=== PATIENT | female | born 1970 | race Caucasian/White ===

== ENCOUNTER → 2020-05-06 00:01 | Outpatient (BNVA) | payer OTHER, SELFPAY | PROVIDERS: Family Provider Family Medicine; PCP Family Medicine; Visit Provider Nurse Practitioner Family | DX: R05 Cough (principal) | CPT/HCPCS: 87635 ==

== ENCOUNTER → 2021-01-17 10:56 | Outpatient (BNVA) | payer OTHER, SELFPAY | PROVIDERS: Family Provider Family Medicine; PCP Family Medicine; Visit Provider Internal Medicine | DX: E11.65 Type 2 diabetes mellitus with hyperglycemia (principal); E66.9 Obesity, unspecified; Z86.39 Personal history of other endocrine, nutritional and metabolic disease | CPT/HCPCS: 99204 ==

== ENCOUNTER → 2021-01-27 14:59 | Outpatient (BNVA) | payer OTHER, SELFPAY | PROVIDERS: Family Provider Family Medicine; PCP Family Medicine; Referring Provider Dermatology; Visit Provider Podiatrist Foot & Ankle Surgery | DX: M20.11 Hallux valgus (acquired), right foot (principal); M77.31 Calcaneal spur, right foot | CPT/HCPCS: 73630 ==

== ENCOUNTER 2021-09-21 18:43 | Emergency (ER) | payer OTHER, SELFPAY ==
[2021-09-21 19:07] VITALS: BP 142/74; PULSE 67; RESP 18; TEMP 36.7; O2SAT 98; BMI 35.9
[2021-09-21 19:27] VITALS: BP 142/74; PULSE 67; RESP 18; O2SAT 98
--- NOTE | 2021-09-21 19:31 | XRR_ITS ---
PROCEDURE INFORMATION: Exam: XR Right Wrist Exam date and time: 09/21/2021 7:31 PM Age: 51 years old Clinical indication: Injury or trauma; Fall; Blunt trauma (contusions or hematomas); Wrist; Right TECHNIQUE: Imaging protocol: XR Right wrist. Views: 3 or more views. COMPARISON: No relevant prior studies available. FINDINGS: Bones/joints: Mild 1st carpometacarpal joint osteoarthritis. Soft tissues: Normal. XR/XR wrist RT min 3V* [id number] IMPRESSION: 1. No acute findings. 2. Mild 1st carpometacarpal joint osteoarthritis. Radiation Dose CTDIVOL = (mGy): DLP = (mGy-cm)
--- NOTE | 2021-09-21 19:31 | W.ED.EXTPRO ---
HPI - Extremity Problem General: Chief complaint: Extremity Injury, Upper Stated complaint: RT Hand Injury Time Seen by Provider: 09/21/21 19:21 History of Present Illness: HPI Narrative: 51-year-old female comes in with injury to the right wrist area. Patient reports that yesterday she was walking her dog when it jerked away from her causing her to fall and injure her right wrist area. Patient reports pain along the thumb and radius of the wrist. Patient appears well. No obvious deformity is noted. Review of Systems General: Reports: 10 or more systems reviewed and unremarkable except in HPI and below Musc: Reports: other (Right wrist) FORMERLY [facility], [facility] ED PFSH: Medical History History of diabetes mellitus, type II Surgical History History of hysterectomy History of knee replacement Family History Grandmother , LUNG No problems noted. 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 Current gender identity: Female Special [place] needs: No Physical Exam Const: COMMON NORMALS: no acute distress and patient oriented x3 GENERAL APPEARANCE: cooperative HENMT: COMMON NORMALS: normocephalic HEAD & SCALP: normal to inspection and normocephalic Eye: GENERAL EYE: appearance normal, both eyes and all related structures Neck/C-Spine: COMMON NORMALS: full ROM Chest: COMMONS NORMALS: normal inspection of the chest Resp: COMMON NORMALS: normal respiratory effort EFFORT & INSPECTION: Yes able to speak in complete sentences Cardio: COMMON NORMALS: regular rate and regular rhythm RATE: regular rate RHYTHM: regular rhythm GI: COMMON NORMALS: non-tender Back/Pelvis: COMMON NORMALS: thoracic and lumbar spine normal to inspection Extremity: NARRATIVE EXTREMITY EXAM: Mild swelling is noted to the radial side of the right wrist, negative snuffbox, patient has good range of motion of the hand and wrist. Tenderness is noted along the thenar aspect of the thumb. Neuro: COMMON NORMALS: patient oriented x3 and moves all extremities Psych: COMMON NORMALS: mental status grossly normal and cooperative Skin: COMMON NORMALS: no rashes or lesions noted GENERAL SKIN EXAM: no rashes or lesions noted Course Vital Signs: Vital signs: Vital Signs Temperature 98.1 F 09/21/21 19:07 Pulse Rate 67 09/21/21 19:27 Respiratory Rate 18 09/21/21 19:27 Blood Pressure 142/74 09/21/21 19:27 Pulse Oximetry 98 09/21/21 19:27 MDM - Extremity (Nontraumatic) MDM Narrative: Medical decision making narrative: Patient comes in today with injury to the right wrist. On exam he she has some mild swelling to the radial aspect of the wrist and some tenderness to the thenar area of the hand. Differential diagnosis includes scaphoid fracture, radial fracture, sprain. X-rays seen to have no fracture noted on it. Patient was placed in elastic bandage and recommended to follow-up in 5 to 7 days for continued complaints of pain for repeat x-ray. Patient reported understanding and agreed to plan. Discharge Plan Discharge Patient Disposition: Home Clinical Impression: Sprain of wrist, right Condition: Stable Prescriptions: No Action lisinopril 5 mg tablet 5 mg PO DAILY RF: 0 citalopram 10 mg tablet 10 mg PO DAILY RF: 0 cholecalciferol (vitamin D3) 10 mcg (400 unit) capsule 10 mcg PO DAILY RF: 0 estradiol 0.5 mg tablet 0.5 mg PO DAILY RF: 0 metformin 1,000 mg tablet extended release 24hr 1,000 mg PO BID Qty: 180 RF: 3 Jardiance 25 mg tablet 25 mg PO DAILY RF: 0 Discharge Orders: Discharge ED (Routine); Ordered 09/21/21 Ordered By: Immanuel Yoder Referrals: Prabhu Alfaro MD [Primary Care Provider] - Discharge Diet: Usual diet Discharge Activity: Increase activity as tolerated Patient Instructions: Wrist Sprain (ED), Opioid Safety Activity Restrictions/Additional Instructions: Activity as tolerated. Use wrist support for comfort. Increase activity as tolerated. Use ice to the area for the next 48 hours to help with pain and swelling. After that you may use heat or ice as needed for any discomfort. Use acetaminophen and ibuprofen for pain. Follow-up with primary care for further instruction. Return to the ER for new concerns. 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
== END 2021-09-21 19:57 | disposition home or self-care (01) ==
PROVIDERS: Emergency Provider Nurse Practitioner Family; PCP Family Medicine
DX: S63.501A Unspecified sprain of right wrist, initial encounter (principal); Z79.84 Long term (current) use of oral hypoglycemic drugs; E11.9 Type 2 diabetes mellitus without complications; W19.XXXA Unspecified fall, initial encounter
CPT/HCPCS: 73110; 99282

== ENCOUNTER → 2022-02-26 10:46 | Outpatient (BNVA) | payer OTHER, SELFPAY | PROVIDERS: PCP Family Medicine; Visit Provider Family Medicine | DX: E11.9 Type 2 diabetes mellitus without complications (principal); E78.5 Hyperlipidemia, unspecified | CPT/HCPCS: 80053; 80061; 83036; 85025 ==

== ENCOUNTER 2022-04-21 12:15 | Outpatient (CLI) | payer OTHER, SELFPAY | END 2022-04-21 12:16 | disposition home or self-care (01) | LOC: SPT 12:17 | PROVIDERS: PCP Family Medicine; Visit Provider Podiatrist Foot & Ankle Surgery | DX: Z46.89 Encounter for fitting and adjustment of other specified devices (principal); M21.612 Bunion of left foot; M21.611 Bunion of right foot | CPT/HCPCS: L3030 ==

== ENCOUNTER 2023-02-16 07:44 | Outpatient (CLI) | payer OTHER, SELFPAY ==
[2023-02-16 08:20] LABS: Estmated Average Glucose 194; Hemoglobin A1C 8.4 % (4.0-6.0)
[2023-02-16 08:37] LABS: Alanine Aminotransferase 21 U/L (0-33); Albumin Level 4.4 g/dL (3.5-5.2); Alkaline Phosphatase 86 U/L (35-105); Anion Gap 14.8 (5-19); Aspartate Amino Transferase 18 U/L (0-32); Blood Urea Nitrogen 15 mg/dL (6-20); Calcium 9.3 mg/dL (8.5-10.5); Carbon Dioxide 26 mmol/L (22-29); Chloride 99 mmol/L (98-107); Chol HDL Ratio 2.74 mg/dL (0.0-4.40); Cholesterol 156 mg/dL (0-200); Glomerular Filtration Rate 104.6 mL/min (90-130); Glucose 144 mg/dL (65-115); HDL Cholesterol 57 mg/dL (60-100); LDL Cholesterol Calculated 74 mg/dL (50-129); Osmolality Calculated 285 mOsm/kg (285-295); Potassium 3.8 mmol/L (3.5-5.1); Sodium 136 mmol/L (136-145); Total Bilirubin 0.7 mg/dL (0.15-1.2); Total Protein 7.4 g/dL (6.6-8.7); Triglycerides 123 mg/dL (0-150)
[2023-02-16 08:38] LABS: Creatinine Urine, Random 76 mg/dL (28-217); Microalbum Creatinine Ratio Ur 13 mg/dL (0-20); Microalbumin Random Urine 1 ug/dL (0-20)
== END 2023-02-16 07:45 | disposition home or self-care (01) ==
LOC: LAB 07:47
PROVIDERS: PCP Family Medicine; Visit Provider Internal Medicine
DX: E11.65 Type 2 diabetes mellitus with hyperglycemia (principal); E78.2 Mixed hyperlipidemia
CPT/HCPCS: 36415; 80053; 80061; 82044; 83036

== ENCOUNTER 2023-04-22 12:57 | Emergency (ER) | payer OTHER, SELFPAY ==
[2023-04-22] VITALS (10 sets, daily range): BP systolic 99–125; BP diastolic 65–83; PULSE 76–83; RESP 15–18; TEMP 36.4; O2SAT 95–99; BMI 35.2
--- NOTE | 2023-04-22 13:21 | ECG_ITS ---
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 Measurements Intervals [place] Rate: 86 P: 63 LA: 155 QRS: 55 QRSD: 89 T: 67 QT: 369 QTc: 442 Interpretive Statements SINUS RHYTHM No previous ECG available for comparison Electronically Signed On 04-22-2023 19:26:46 CDT by Alyx Gamino M.D. [id number]
--- NOTE | 2023-04-22 13:33 | XR_ITS ---
WS: [id number] Exam: XR chest 1V portable [id number] Date/Time of Exam: 04/22/2023 1:39 PM Reason For Exam: chest pain No priors. Findings: The lungs are clear and fully expanded. Costophrenic angles are sharp. No infiltrates. Bronchovascula r relief appears normal. Cardiac silhouette is unremarkable. Bony elements are intact. XR/XR chest 1V portable [id number] IMPRESSION: Unremarkable chest radiograph.
--- NOTE | 2023-04-22 13:58 | ED_ITS ---
HPI - Chest Pain General: Chief Complaint: Chest Pain Stated Complaint: n/v, chest/back pain Time Seen by Provider: 04/22/23 13:35 History of Present Illness: Presents to the ER with chief complaint of substernal chest pain/indigestion. She states has been having this for few days but also having pain between her shoulder blades all this is resolved now except some indigestion. Patient has started taking Mounjaro axis may be part of the issue. Patient had some nausea vomiting last night and this morning. Patient has not had anything to eat today. Review of Systems General: Reports: 10 or more systems reviewed and unremarkable except in HPI and below PFSH ED PFSH: Medical History History of diabetes mellitus, type II Surgical History History of hysterectomy History of knee replacement Family History Grandmother , LUNG No problems noted. 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 [employer] Current gender identity: Female Special [place] needs: No Physical Exam Const: COMMON NORMALS: no acute distress, average body habitus, patient oriented x3, no limitations, healthy appearing, alert and well nourished HENMT: COMMON NORMALS: normocephalic, atraumatic, hearing grossly normal bilaterally, external ears normal, Normal external nose present and moist oral mucous membranes HEAD & SCALP: normocephalic and atraumatic NOSE: Normal external nose present EXTERNAL EAR: Yes external ears normal Neck/C-Spine: COMMON NORMALS: full ROM, no lymphadenopathy, supple, no meningeal signs, no JVD and Thyroid normal THYROID: Thyroid normal Chest: COMMONS NORMALS: normal inspection of the chest and normal palpation of entire chest wall Resp: COMMON NORMALS: normal respiratory effort, No retractions, No use of accessory muscles and clear to auscultation bilaterally AUSCULTATION: clear to auscultation bilaterally Cardio: COMMON NORMALS: no JVD GI: COMMON NORMALS: Normal to inspection, nondistended, normoactive bowel sounds present, Soft to palpation, non-tender, No hepatosplenomegaly present and no masses PALPATION: Yes Soft to palpation and Yes No hepatosplenomegaly present : COMMON NORMALS: Yes no CVA tenderness BLADDER/KIDNEY EXAM: Yes no CVA tenderness Back/Pelvis: COMMON NORMALS: no CVA tenderness Neuro: COMMON NORMALS: patient oriented x3 SENSORIUM/ORIENTATION: Yes alert MENINGEAL SIGNS: Yes no meningeal signs Course Vital Signs: Vital signs: Vital Signs Temperature 97.6 F 04/22/23 13:10 Pulse Rate 83 04/22/23 13:10 Respiratory Rate 18 04/22/23 13:18 Blood Pressure 99/65 04/22/23 15:00 Pulse Oximetry 96 04/22/23 13:10 Oxygen Delivery Me thod Room Air 04/22/23 13:10 MDM - Chest Pain Medical Decision Making Presents to the ER with substernal epigastric pain. Along with nausea and vomiting. Lab work was obtained which showed a normal white count did show elevated liver enzymes the AST 159 and ALT 178 with alkaline phosphatase of 221. CT was obtained which was benign for liver, however did show some small bowel and colon, gastroenteritis. Patient was given IV fluids, GI cocktail, and Zofran here in ER and she is feeling a little better. Patient be discharged home to push fluids and take Zofran as needed. Follow-up with your doctor within next week. Differential Diagnosis Unlikely acute massive pulmonary embolism, acute respiratory failure, acute myocardial infarction, cardiac arrest or sudden cardiac Medical Records I reviewed the patient's medical records. Lab Data I reviewed the patient's lab results. 04/22/23 13:47 04/22/23 13:47 Radiology Impressions Chest X-Ray 04/22/23 13:33 IMPRESSION: Unremarkable chest radiograph. Abdomen/Pelvis CT 04/22/23 14:53 IMPRESSION: 1. Prominent fluid in the small bowel and colon may reflect a gastroenteritis in the appropriate clinical setting. 2. Left deep pelvis 4.5 cm simple cyst with a small amount of surrounding fluid, nonemergent pelvic ultrasound could further evaluate this. 3. Edema in the upper abdominal mesentery with subcentimeter lymph nodes suggestive of a possible chronic inflammatory process such as sclerosing mesenteritis. 4. Hepatic steatosis. 5. Cholecystectomy. Laboratory Results WBC 9.2 10^3/uL (4.0-10.0) 04/22/23 13:47 RBC 5.65 10^6/uL (4.1-5.3) H 04/22/23 13:47 Hgb 16.1 g/dL (11.5-15.3) H 04/22/23 13:47 Hct 48.6 % (37.0-47.0) H 04/22/23 13:47 MCV 86.0 fl (81-99) 04/22/23 13:47 MCH 28.5 pg (28.0-34.0) 04/22/23 13:47 MCHC 33.1 g/dL (30.0-36.0) 04/22/23 13:47 RDW 13.0 % (12.1-15.1) 04/22/23 13:47 Plt Count 208 10^3/cmm (130-400) 04/22/23 13:47 MPV 12.0 fL (7.4-10.4) H 04/22/23 13:47 Neut % (Auto) 79.5 % 04/22/23 13:47 Lymph % (Auto) 12.1 % 04/22/23 13:47 [place] % (Auto) 4.2 % 04/22/23 13:47 Eos % (Auto) 3.9 % 04/22/23 13:47 Baso % (Auto) 0.1 % 04/22/23 13:47 Neut # (Auto) 7.34 10^3/uL (1.8-7.7) 04/22/23 13:47 Lymph # (Auto) 1.1 10^3/uL (0.8-4.8) 04/22/23 13:47 [place] # (Auto) 0.4 10^3/uL (0.2-0.9) 04/22/23 13:47 Eos # (Auto) 0.4 10^3/uL (0.0-0.8) 04/22/23 13:47 Baso # (Auto) 0.0 10^3/uL (0.0-0.1) 04/22/23 13:47 Nucleated RBC % (auto) 0 % 04/22/23 13:47 Nucleated RBCs # 0.0 /100WBC 04/22/23 13:47 Sodium 140 mmol/L (136-145) 04/22/23 13:47 Potassium 3.9 mmol/L (3.5-5.1) 04/22/23 13:47 Chloride 103 mmol/L (98-107) 04/22/23 13:47 Carbon Dioxide 24 mmol/L (22-29) 04/22/23 13:47 Anion Gap 16.9 (5-19) 04/22/23 13:47 BUN 19 mg/dL (6-20) 04/22/23 13:47 Creatinine 0.6 mg/dL (0.5-0.9) 04/22/23 13:47 GFR Calculation 104.6 mL/min (90-130) 04/22/23 13:47 Glucose 122 mg/dL (65-115) H 04/22/23 13:47 Calculated Osmolality 294 mOsm/kg (285-295) 04/22/23 13:47 Calcium 9.1 mg/dL (8.5-10.5) 04/22/23 13:47 Total Bilirubin 0.8 mg/dL (0.15-1.2) 04/22/23 13:47 AST 159 U/L (0-32) H 04/22/23 13:47 ALT 178 U/L (0-33) H 04/22/23 13:47 Alkaline Phosphatase 221 U/L (35-105) H 04/22/23 13:47 Troponin T Baseline 6 ng/L (0-10) 04/22/23 13:47 Troponin T 120 Minute 6.00 ng/L (0-10) 04/22/23 15:24 Delta Troponin T 0 ABS# (0-10) 04/22/23 15:24 Total Protein 6.6 g/dL (6.6-8.7) 04/22/23 13:47 Albumin 4.1 g/dL (3.5-5.2) 04/22/23 13:47 Globulin 2.5 g/dL (1.3-4.6) 04/22/23 13:47 Lipase 26 U/L (13-60) 04/22/23 13:47 Urine Color Yellow (Yellow) 04/22/23 15:04 Urine Appearance Clear (CLEAR) 04/22/23 15:04 Urine pH 6 (5-7) 04/22/23 15:04 Ur Specific [place] 1.010 (1.005-1.030) 04/22/23 15:04 Urine Protein Neg (Negative) 04/22/23 15:04 Urine Glucose (UA) 4+ (Normal) H 04/22/23 15:04 Urine Ketones 2+ (Negative) H 04/22/23 15:04 Urine Blood Neg (Negative) 04/22/23 15:04 Urine Nitrate Negative (Negative) 04/22/23 15:04 Urine Bilirubin 1+ (Negative) H 04/22/23 15:04 Urine Urobilinogen 4 mg/dL (Negative) H 04/22/23 15:04 Ur Leukocyte Esterase Negative (Negative) 04/22/23 15:04 EKG Data EKG 1: I personally reviewed and interpreted this EKG as follows: EKG interpretation date: 04/22/23 EKG interpretation time: 13:21 Prior EKG tracings: not available for review Interpretation: EKG showed ventricular rate of 86 bpm, HI interval 155, QRS duration 89, QTc of 442, normal sinus rhythm and no ST-T wave changes. EKG 2: I personally reviewed and interpreted this EKG as follows: EKG interpretation date: 04/22/23 EKG interpretation time: 16:07 Prior EKG tracings: available for review Interpretation: EKG showed ventricular rate 64 beats minute, HI interval 167, QRS duration 84, QTc of 426, normal sinus rhythm with ventricular premature complex, no ST-T wave changes Discharge Plan Discharge Patient Disposition: Home Clinical Impression: Gastroenteritis, Abdominal pain, epigastric Condition: Stable Prescriptions: New ondansetron HCl 4 mg tablet 4 mg PO Q8H PRN (Reason: nausea and vomiting) Qty: 14 0RF No Action cholecalciferol (vitamin D3) 10 mcg (400 unit) capsule 10 mcg PO DAILY (DME) sole supports See Rx Instructions .Route .MEDSUPPLY Qty: 1 0RF Rx Instructions: As directed metformin 1,000 mg tablet extended release 24hr 1,000 mg PO BID Qty: 180 3RF lisinopril 5 mg tablet 5 mg PO DAILY Qty: 90 3RF Mounjaro 2.5 mg/0.5 mL pen injector 2.5 mg SUBCUT Q7D 30 Days Qty: 15 0RF Rx Instructions: 2.5mg weekly for 1month; 5mg weekly for 1month; 7.5mg weekly and continue Mounjaro 5 mg/0.5 mL pen injector 5 mg SUBCUT Q7D 30 Days Qty: 15 0RF Rx Instructions: 5mg weekly for 1 month then 7.5mg weekly and continue Mounjaro 7.5 mg/0.5 mL pen injector 7.5 mg SUBCUT Q7D 30 Days Qty: 15 0RF (DME) OneTouch Ultra Test Strip See Rx Instructions .Route Qty: 200 2RF Rx Instructions: Check up to 2 times daily ibuprofen 800 mg tablet 800 mg PO TID PRN (Reason: pain) Qty: 90 5RF estradiol 0.5 mg tablet 0.5 mg PO DAILY Qty: 90 3RF Rx Instructions: off 5 days; repeat cycle omeprazole 20 mg Capsule,Delayed Release(Dr/Ec) 20 mg PO BID vitamin Y24-rdhzh acid 0.5-1 mg Tablet 1 tab PO DAILY whgrmbp-pxom-eycat-oreg-capryl 100 mg-150 mg- 50 mg-150 mg Capsule 1 cap PO DAILY citalopram 40 mg tablet 40 mg PO DAILY atorvastatin 10 mg tablet 10 mg PO DAILY oxybutynin chloride 5 mg tablet 5 mg PO DAILY Jardiance 25 mg tablet 25 mg PO DAILY Discharge Orders: Discharge ED (Routine); Ordered 04/22/23 Ordered By: Luca Torres Referrals: Prabhu Alfaro MD [Primary Care Provider] - 1 week Patient Instructions: Gastroenteritis (ED), Abdominal Pain (ED) Activity Restrictions/Additional Instructions: Please push fluids and advance diet as tolerated. Please take antiemetics as directed. Please follow-up with the PCP in approximately 1 week or sooner as needed. Coding Level of Care Code ED Operating Theatre Technician for Eliseo Mancini
[2023-04-22 14:04] LABS: Basophils % 0.1 %; Eosinophils # 0.4 10^3/uL (0.0-0.8); Eosinophils % 3.9 %; Hematocrit 48.6 % (37.0-47.0); Hemoglobin 16.1 g/dL (11.5-15.3); Lymphocytes # 1.1 10^3/uL (0.8-4.8); Lymphocytes % 12.1 %; Mean Corpuscular HGB Conc 33.1 g/dL (30.0-36.0); Mean Corpuscular Hemoglobin 28.5 pg (28.0-34.0); Monocytes # 0.4 10^3/uL (0.2-0.9); Monocytes % 4.2 %; Neutrophils # 7.34 10^3/uL (1.8-7.7); Neutrophils % 79.5 %; Nucleated Red Blood Cells % 0 %; Platelet Count 208 10^3/cmm (130-400); Red Blood Count 5.65 10^6/uL (4.1-5.3); White Blood Count 9.2 10^3/uL (4.0-10.0)
[2023-04-22 14:22] LABS: Alanine Aminotransferase 178 U/L (0-33); Albumin Level 4.1 g/dL (3.5-5.2); Alkaline Phosphatase 221 U/L (35-105); Anion Gap 16.9 (5-19); Aspartate Amino Transferase 159 U/L (0-32); Blood Urea Nitrogen 19 mg/dL (6-20); Calcium 9.1 mg/dL (8.5-10.5); Carbon Dioxide 24 mmol/L (22-29); Chloride 103 mmol/L (98-107); Globulin 2.5 g/dL (1.3-4.6); Glomerular Filtration Rate 104.6 mL/min (90-130); Glucose 122 mg/dL (65-115); Lipase 26 U/L (13-60); Osmolality Calculated 294 mOsm/kg (285-295); Potassium 3.9 mmol/L (3.5-5.1); Sodium 140 mmol/L (136-145); Total Bilirubin 0.8 mg/dL (0.15-1.2); Total Protein 6.6 g/dL (6.6-8.7)
[2023-04-22 14:25] LABS: Troponin(5th) Baseline 6 ng/L (0-10)
[2023-04-22] MEDS: lidocaine 2% viscous 15 ML, aluminum-mag hydrox-simethicon 30 ML, sucralfate oral liq 1 GM PO (14:25)
--- NOTE | 2023-04-22 14:53 | CTR_ITS ---
PROCEDURE INFORMATION: Exam: CT Abdomen And Pelvis With Contrast Exam date and time: 04/22/2023 3:55 PM Age: 52 years old Clinical indication: Abdominal pain; Epigastric; Prior surgery; Surgery date: 6+ months; Surgery type: Hyst; Additional info: N/v epigastric pain, elevated lfts TECHNIQUE: Imaging protocol: Computed tomography of the abdomen and pelvis with contrast. Radiation optimization: All CT scans at this facility use at least one of these dose optimization techniques: automated exposure control; mA and/or kV adjustment per patient size (includes targeted exams where dose is matched to clinical indication); or iterative reconstruction. Contrast material: OMNI 350; Contrast volume: 100 ml; Contrast route: INTRAVENOUS (IV); REPORTING DATA: Count of CT and Cardiac NM exams in prior 12 months: This patient has received 0 known CTs and 0 known cardiac nuclear medicine studies in the 12 months prior to the current study. COMPARISON: CR XR chest 1V portable [id number] 04/22/2023 1:41 PM RADIATION DOSE METRICS: Total DLP (mGy-cm): 1081.63 FINDINGS: Liver: Hepatic steatosis. Gallbladder and bile ducts: Cholecystectomy. Pancreas: Normal. No ductal dilation. Spleen: Normal. No splenomegaly. Adrenal glands: Normal. No mass. Kidneys and ureters: Normal. No hydronephrosis. Stomach and bowel: Prominent fluid in the small bowel and colon may reflect a gastroenteritis in the appropriate clinical setting. Appendix: No evidence of appendicitis. Intraperitoneal space: Unremarkable. No free air. No significant fluid collection. Vasculature: Unremarkable. No abdominal aortic aneurysm. Lymph nodes: Edema in the upper abdominal mesentery with subcentimeter lymph nodes suggestive of a possible chronic inflammatory process such as sclerosing mesenteritis. Urinary bladder: Unremarkable as visualized. Reproductive: Unremarkable as visualized. Bones/joints: Unremarkable. No acute fracture. Soft tissues: Unremarkable. Other findings: Left deep pelvis 4.5 cm simple cyst with a small amount of surrounding fluid, nonemergent pelvic ultrasound could further evaluate this. CT/CT abdomen pelvis w con* [id number] IMPRESSION: 1. Prominent fluid in the small bowel and colon may reflect a gastroenteritis in the appropriate clinical setting. 2. Left deep pelvis 4.5 cm simple cyst with a small amount of surrounding fluid, nonemergent pelvic ultrasound could further evaluate this. 3. Edema in the upper abdominal mesentery with subcentimeter lymph nodes suggestive of a possible chronic inflammatory process such as sclerosing mesenteritis. 4. Hepatic steatosis. 5. Cholecystectomy.
--- NOTE | 2023-04-22 15:34 | ECG_ITS ---
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 Measurements Intervals [place] Rate: 64 P: 47 NC: 167 QRS: 31 QRSD: 84 T: 49 QT: 417 QTc: 430 Interpretive Statements SINUS RHYTHM WITH OCCASIONAL VENTRICULAR PREMATURE COMPLEXES Compared to ECG 04/22/2023 13:21:37 Ventricular premature complex(es) now present Electronically Signed On 04-22-2023 19:27:44 CDT by Alyx Gamino M.D. [id number]
[2023-04-22 15:49] LABS: Add Urine Microscopic? NO; Charge for UA Resulting for Rev
[2023-04-22 15:55] LABS: Protein Urine Neg (Negative); Urine Appearance Clear (CLEAR); Urine Color Yellow (Yellow); pH Urine 6 (5-7)
[2023-04-22 15:56] LABS: Bilirubin Urine 1+ (Negative); Blood Urine Neg (Negative); Glucose Urine UA 4+ (Normal); Ketones Urine 2+ (Negative); Leukocyte Esterase Urine Negative (Negative); Nitrate Urine Negative (Negative); Urobilinogen Urine 4 mg/dL (Negative)
[2023-04-22 15:56] LABS: Troponin 5 2HR Delta 0 ABS# (0-10)
[2023-04-22] MEDS: iohexol 350 mg/mL 500 mL Btl (per mL) IV (16:01)
[2023-04-22] MEDS: ondansetron 2 mg/ML SDV 2 mL 4 MG IVP (17:40)
== END 2023-04-22 17:43 | disposition home or self-care (01) ==
PROVIDERS: Physician Assistant; Emergency Provider Emergency Medicine; PCP Family Medicine
DX: K52.9 Noninfective gastroenteritis and colitis, unspecified (principal); Z79.84 Long term (current) use of oral hypoglycemic drugs; E11.9 Type 2 diabetes mellitus without complications
CPT/HCPCS: 36415; 71045; 74177; 80053; 81003; 83690; 84484; 85025; 93005; 96374; 99285; J2405; Q9967

== ENCOUNTER 2023-06-09 16:48 | Emergency (ER) | payer OTHER, SELFPAY ==
[2023-06-09 16:53] VITALS: BMI 36.9
[2023-06-09 16:55] VITALS: BP 101/69; PULSE 80; RESP 16; TEMP 37.1; O2SAT 95
[2023-06-09 17:25] VITALS: BP 104/65; PULSE 75; O2SAT 95
[2023-06-09 17:30] VITALS: BP 134/79; PULSE 67; O2SAT 97
--- NOTE | 2023-06-09 17:47 | ED_ITS ---
Documented by User: Syed Rodriguez DO 06/11/23 16:08 HPI - Abdominal Pain General: Chief Complaint: Abdominal Pain Stated Complaint: Abd pain Time Seen by Provider: 06/09/23 17:02 Source: patient Mode of arrival: ambulatory History of Present Illness: 53-year-old female presents emergency room complaining of nausea vomiting and diarrhea along the right upper quadrant abdominal pain. Began overnight. She denies any medic easy melena hematemesis cough tenderness no hematuria no dysuria urgency or frequency. took over care pending labs and us. upon revealuation and reexamination. pt with with mausea and diarrhea. she was given zofran and reglan. stool sample obtained and sent to lab MD elicited complaint: abdominal pain Onset (ago): hour(s) Pain Consistency: constant Location: RUQ Severity: moderate Quality: cramping Radiation: back Exacerbating factors: nothing Relieving factors: nothing Associated Symptoms: Reports GI cramping, diarrhea and nausea; Denies anorexia, belching, bloating, change in bowel habits, change in stool character, chills, coffee ground emesis, constipation, dyspepsia, dysuria, excessive flatus, fever(s), heartburn, hematochezia, hematuria, hematemesis, fecal incontinence, loose stools, melena, poor appetite, syncope and vomiting Review of Systems Const: Denies: fever(s) or chills ENMT: Denies: throat pain, ear or mastoid pain, nasal discharge or nasal congestion Card: Denies: syncope Resp: Denies: dyspnea, productive cough or non-productive cough GI: Reports: nausea, diarrhea and GI cramping; Denies: vomiting, hematemesis, coffee ground emesis, heartburn, constipation, bloating, belching, excessive flatus, fecal incontinence, change in bowel habits, change in stool character, hematochezia or melena : Denies: dysuria or hematuria Skin/Breast: Denies: rash or pruritus PFSH ED PFSH: Medical History History of diabetes mellitus, type II Surgical History History of hysterectomy History of knee replacement Family History Grandmother , LUNG No problems noted. 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 Current gender identity: Female Special mdoesta needs: No Physical Exam Const: GENERAL APPEARANCE: cooperative and comfortable ORIENTATION/CONSCIO USNESS: Yes awake, Yes oriented to person, Yes oriented to place and Yes oriented to time HENMT: COMMON NORMALS: normocephalic, atraumatic and hearing grossly normal bilaterally HEAD & SCALP: normocephalic and atraumatic Resp: COMMON NORMALS: normal respiratory effort, No retractions, No use of accessory muscles and clear to auscultation bilaterally AUSCULTATION: clear to auscultation bilaterally Cardio: COMMON NORMALS: regular rate, regular rhythm and No murmurs present (Cardio) RATE: regular rate RHYTHM: regular rhythm GI: COMMON NORMALS: Normal to inspection, nondistended, normoactive bowel sounds present, Soft to palpation, No hepatosplenomegaly present, no masses and no bruits AUSCULTATION: Yes normoactive bowel sounds PALPATION: Yes Soft to palpation, Yes Tenderness to palpation present (GI) Details: RUQ and Yes No hepatosplenomegaly present Extremity: COMMON NORMALS: normal to inspection, capillary refill normal, no clubbing, cyanosis or edema, no calf tenderness and no pedal edema Neuro: SENSORIUM/ORIENTATION: Yes oriented to person, Yes oriented to place and Yes oriented to time Skin: COMMON NORMALS: no rashes or lesions noted GENERAL SKIN EXAM: no rashes or lesions noted Course Vital Signs: Vital signs: Vital Signs Temperature 98.8 F 06/09/23 16:55 Pulse Rate 70 06/09/23 21:34 Respiratory Rate 18 06/09/23 21:34 Blood Pressure 132/68 06/09/23 21:34 Pulse Oximetry 96 06/09/23 21:34 Oxygen Delivery Me thod Room Air 06/09/23 17:30 MDM - Abdominal Pain Medical Decision Making Patient previously has had a cholecystectomy ultrasound done to evaluate common bile duct given her biliary colic like symptoms. Labs and ultrasound reading pending. patient made comfortable in ER. i reviewed labs and US . Discussed jesus duque with patient and family Medical Records I reviewed the patient's medical records. Lab Data 06/09/23 16:38 06/09/23 16:38 Labs/Radiology: Radiology Impressions Gallbladder Ultrasound 06/09/23 17:50 IMPRESSION: Status post cholecystectomy. Mild central biliary ductal dilatation, likely postsurgical. Laboratory Results WBC 10.6 10^3/uL (4.0-10.0) H 06/09/23 16:38 RBC 5.39 10^6/uL (4.1-5.3) H 06/09/23 16:38 Hgb 15.3 g/dL (11.5-15.3) 06/09/23 16:38 Hct 47.5 % (37.0-47.0) H 06/09/23 16:38 MCV 88.1 fl (81-99) 06/09/23 16:38 MCH 28.4 pg (28.0-34.0) 06/09/23 16:38 MCHC 32.2 g/dL (30.0-36.0) 06/09/23 16:38 RDW 13.4 % (12.1-15.1) 06/09/23 16:38 Plt Count 255 10^3/cmm (130-400) 06/09/23 16:38 MPV 12.3 fL (7.4-10.4) H 06/09/23 16:38 Neut % (Auto) 64.7 % 06/09/23 16:38 Lymph % (Auto) 29.5 % 06/09/23 16:38 [place] % (Auto) 4.4 % 06/09/23 16:38 Eos % (Auto) 0.8 % 06/09/23 16:38 Baso % (Auto) 0.2 % 06/09/23 16:38 Neut # (Auto) 6.84 10^3/uL (1.8-7.7) 06/09/23 16:38 Lymph # (Auto) 3.1 10^3/uL (0.8-4.8) 06/09/23 16:38 Colleton # (Auto) 0.5 10^3/uL (0.2-0.9) 06/09/23 16:38 Eos # (Auto) 0.1 10^3/uL (0.0-0.8) 06/09/23 16:38 Baso # (Auto) 0.0 10^3/uL (0.0-0.1) 06/09/23 16:38 Nucleated RBC % (auto) 0 % 06/09/23 16:38 Nucleated RBCs # 0.0 /100WBC 06/09/23 16:38 Sodium 138 mmol/L (136-145) 06/09/23 16:38 Potassium 3.9 mmol/L (3.5-5.1) 06/09/23 16:38 Chloride 100 mmol/L (98-107) 06/09/23 16:38 Carbon Dioxide 25 mmol/L (22-29) 06/09/23 16:38 Anion Gap 16.9 (5-19) 06/09/23 16:38 BUN 17 mg/dL (6-20) 06/09/23 16:38 Creatinine 0.6 mg/dL (0.5-0.9) 06/09/23 16:38 GFR Calculation 104.2 mL/min (90-130) 06/09/23 16:38 Glucose 159 mg/dL (65-115) H 06/09/23 16:38 Calculated Osmolality 291 mOsm/kg (285-295) 06/09/23 16:38 Calcium 9.5 mg/dL (8.5-10.5) 06/09/23 16:38 Total Bilirubin 0.6 mg/dL (0.15-1.2) 06/09/23 16:38 AST 18 U/L (0-32) 06/09/23 16:38 ALT 19 U/L (0-33) 06/09/23 16:38 Alkaline Phosphatase 100 U/L (35-105) 06/09/23 16:38 Total Protein 7.5 g/dL (6.6-8.7) 06/09/23 16:38 Albumin 4.2 g/dL (3.5-5.2) 06/09/23 16:38 Globulin 3.3 g/dL (1.3-4.6) 06/09/23 16:38 Lipase 31 U/L (13-60) 06/09/23 16:38 Urine Color Yellow (Yellow) 06/09/23 19:40 Urine Appearance Clear (CLEAR) 06/09/23 19:40 Urine pH 5 (5-7) 06/09/23 19:40 Ur Specific Parachute 1.030 (1.005-1.030) 06/09/23 19:40 Urine Protein Neg (Negative) 06/09/23 19:40 Urine Glucose (UA) Norm (Normal) 06/09/23 19:40 Urine Ketones Negative (Negative) 06/09/23 19:40 Urine Blood Neg (Negative) 06/09/23 19:40 Urine Nitrate Negative (Negative) 06/09/23 19:40 Urine Bilirubin 1+ (Negative) H 06/09/23 19:40 Urine Urobilinogen Norm mg/dL (Negative) 06/09/23 19:40 Ur Leukocyte Esterase Negative (Negative) 06/09/23 19:40 Discharge Plan Discharge Patient Disposition: Home Clinical Impression: Abdominal pain, Nausea vomiting and diarrhea Condition: Stable Prescriptions: New Reglan 10 mg tablet 10 mg PO Q6H 7 Days Qty: 28 0RF No Action cholecalciferol (vitamin D3) 10 mcg (400 unit) capsule 10 mcg PO DAILY (DME) sole supports See Rx Instructions .Route .MEDSUPPLY Qty: 1 0RF Rx Instructions: As directed metformin 1,000 mg tablet extended release 24hr 1,000 mg PO BID Qty: 180 3RF lisinopril 5 mg tablet 5 mg PO DAILY Qty: 90 3RF Mounjaro 2.5 mg/0.5 mL pen injector 2.5 mg SUBCUT Q7D 30 Days Qty: 15 0RF Rx Instructions: 2.5mg weekly for 1month; 5mg weekly for 1month; 7.5mg weekly and continue Mounjaro 5 mg/0.5 mL pen injector 5 mg SUBCUT Q7D 30 Days Qty: 15 0RF Rx Instructions: 5mg weekly for 1 month then 7.5mg weekly and continue Mounjaro 7.5 mg/0.5 mL pen injector 7.5 mg SUBCUT Q7D 30 Days Qty: 15 0RF (DME) OneTouch Ultra Test Strip See Rx Instructions .Route Qty: 200 2RF Rx Instructions: Check up to 2 times daily ibuprofen 800 mg tablet 800 mg PO TID PRN (Reason: pain) Qty: 90 5RF estradiol 0.5 mg tablet 0.5 mg PO DAILY Qty: 90 3RF Rx Instructions: off 5 days; repeat cycle omeprazole 20 mg Capsule,Delayed Release(Dr/Ec) 20 mg PO BID vitamin R54-cknbu acid 0.5-1 mg Tablet 1 tab PO DAILY otjcbdg-ztzv-vpgsh-oreg-capryl 100 mg-150 mg- 50 mg-150 mg Capsule 1 cap PO DAILY citalopram 40 mg tablet 40 mg PO DAILY atorvastatin 10 mg tablet 10 mg PO DAILY oxybutynin chloride 5 mg tablet 5 mg PO DAILY Jardiance 25 mg tablet 25 mg PO DAILY ondansetron HCl 4 mg tablet 4 mg PO Q8H PRN (Reason: nausea and vomiting) Qty: 14 0RF Discharge Orders: Discharge ED (Routine); Ordered 06/09/23 Ordered By: Seble Lentz Referrals: Prabhu Alfaro MD [Primary Care Provider] - Discharge Diet: Advance as tolerated Discharge Activity: Resume usual activity Patient Instructions: Abdominal Pain (ED), Opioid Safety, Pain Management Coding Level of Care Code ED Supervisor Of Operations for Chg Fwd Documented by User: Seble Letnz MD 06/09/23 21:10 HPI - Abdominal Pain General: Chief Complaint: Abdominal Pain Stated Complaint: Abd pain Time Seen by Provider: 06/09/23 17:02 History of Present Illness: took over care pending labs and us. upon revealuation and reexamination. pt with with mausea and diarrhea. she was given zofran and reglan. stool sample obtained and sent to lab Associated Symptoms: Reports diarrhea and nausea Review of Systems General: Reports: 10 or more systems reviewed and unremarkable except in HPI and below GI: Reports: nausea and diarrhea PFSH ED PFSH: Medical History History of diabetes mellitus, type II Surgical History History of hysterectomy History of knee replacement Family History Grandmother , LUNG No problems noted. 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 Current gender identity: Female Special [place] needs: No Physical Exam GI: COMMON NORMALS: Normal to inspection, nondistended, normoactive bowel sounds present, Soft to palpation, non-tender, No hepatosplenomegaly present, no masses and no bruits PALPATION: Yes Soft to palpation and Yes No hepatosplenomegaly present Course Vital Signs: Vital signs: Vital Signs Temperature 98.8 F 06/09/23 16:55 Pulse Rate 70 06/09/23 21:34 Respiratory Rate 18 06/09/23 21:34 Blood Pressure 132/68 06/09/23 21:34 Pulse Oximetry 96 06/09/23 21:34 Oxygen Delivery Me thod Room Air 06/09/23 17:30 MDM - Abdominal Pain Medical Decision Making patient made comfortable in ER. i reviewed labs and US . Discussed land findings with patient and family Lab Data 06/09/23 16:38 06/09/23 16:38 Labs/Radiology: Radiology Impressions Gallbladder Ultrasound 06/09/23 17:50 IMPRESSION: Status post cholecystectomy. Mild central biliary ductal dilatation, likely postsurgical. Laboratory Results WBC 10.6 10^3/uL (4.0-10.0) H 06/09/23 16:38 RBC 5.39 10^6/uL (4.1-5.3) H 06/09/23 16:38 Hgb 15.3 g/dL (11.5-15.3) 06/09/23 16:38 Hct 47.5 % (37.0-47.0) H 06/09/23 16:38 MCV 88.1 fl (81-99) 06/09/23 16:38 MCH 28.4 pg (28.0-34.0) 06/09/23 16:38 MCHC 32.2 g/dL (30.0-36.0) 06/09/23 16:38 RDW 13.4 % (12.1-15.1) 06/09/23 16:38 Plt Count 255 10^3/cmm (130-400) 06/09/23 16:38 MPV 12.3 fL (7.4-10.4) H 06/09/23 16:38 Neut % (Auto) 64.7 % 06/09/23 16:38 Lymph % (Auto) 29.5 % 06/09/23 16:38 [place] % (Auto) 4.4 % 06/09/23 16:38 Eos % (Auto) 0.8 % 06/09/23 16:38 Baso % (Auto) 0.2 % 06/09/23 16:38 Neut # (Auto) 6.84 10^3/uL (1.8-7.7) 06/09/23 16:38 Lymph # (Auto) 3.1 10^3/uL (0.8-4.8) 06/09/23 16:38 [place] # (Auto) 0.5 10^3/uL (0.2-0.9) 06/09/23 16:38 Eos # (Auto) 0.1 10^3/uL (0.0-0.8) 06/09/23 16:38 Baso # (Auto) 0.0 10^3/uL (0.0-0.1) 06/09/23 16:38 Nucleated RBC % (auto) 0 % 06/09/23 16:38 Nucleated RBCs # 0.0 /100WBC 06/09/23 16:38 Sodium 138 mmol/L (136-145) 06/09/23 16:38 Potassium 3.9 mmol/L (3.5-5.1) 06/09/23 16:38 Chloride 100 mmol/L (98-107) 06/09/23 16:38 Carbon Dioxide 25 mmol/L (22-29) 06/09/23 16:38 Anion Gap 16.9 (5-19) 06/09/23 16:38 BUN 17 mg/dL (6-20) 06/09/23 16:38 Creatinine 0.6 mg/dL (0.5-0.9) 06/09/23 16:38 GFR Calculation 104.2 mL/min (90-130) 06/09/23 16:38 Glucose 159 mg/dL (65-115) H 06/09/23 16:38 Calculated Osmolality 291 mOsm/kg (285-295) 06/09/23 16:38 Calcium 9.5 mg/dL (8.5-10.5) 06/09/23 16:38 Total Bilirubin 0.6 mg/dL (0.15-1.2) 06/09/23 16:38 AST 18 U/L (0-32) 06/09/23 16:38 ALT 19 U/L (0-33) 06/09/23 16:38 Alkaline Phosphatase 100 U/L (35-105) 06/09/23 16:38 Total Protein 7.5 g/dL (6.6-8.7) 06/09/23 16:38 Albumin 4.2 g/dL (3.5-5.2) 06/09/23 16:38 Globulin 3.3 g/dL (1.3-4.6) 06/09/23 16:38 Lipase 31 U/L (13-60) 06/09/23 16:38 Urine Color Yellow (Yellow) 06/09/23 19:40 Urine Appearance Clear (CLEAR) 06/09/23 19:40 Urine pH 5 (5-7) 06/09/23 19:40 Ur Specific Parachute 1.030 (1.005-1.030) 06/09/23 19:40 Urine Protein Neg (Negative) 06/09/23 19:40 Urine Glucose (UA) Norm (Normal) 06/09/23 19:40 Urine Ketones Negative (Negative) 06/09/23 19:40 Urine Blood Neg (Negative) 06/09/23 19:40 Urine Nitrate Negative (Negative) 06/09/23 19:40 Urine Bilirubin 1+ (Negative) H 06/09/23 19:40 Urine Urobilinogen Norm mg/dL (Negative) 06/09/23 19:40 Ur Leukocyte Esterase Negative (Negative) 06/09/23 19:40 Discharge Plan Discharge Patient Disposition: Home Clinical Impression: Abdominal pain, Nausea vomiting and diarrhea Condition: Stable Prescriptions: New Reglan 10 mg tablet 10 mg PO Q6H 7 Days Qty: 28 0RF No Action cholecalciferol (vitamin D3) 10 mcg (400 unit) capsule 10 mcg PO DAILY (DME) sole supports See Rx Instructions .Route .MEDSUPPLY Qty: 1 0RF Rx Instructions: As directed metformin 1,000 mg tablet extended release 24hr 1,000 mg PO BID Qty: 180 3RF lisinopril 5 mg tablet 5 mg PO DAILY Qty: 90 3RF Mounjaro 2.5 mg/0.5 mL pen injector 2.5 mg SUBCUT Q7D 30 Days Qty: 15 0RF Rx Instructions: 2.5mg weekly for 1month; 5mg weekly for 1month; 7.5mg weekly and continue Mounjaro 5 mg/0.5 mL pen injector 5 mg SUBCUT Q7D 30 Days Qty: 15 0RF Rx Instructions: 5mg weekly for 1 month then 7.5mg weekly and continue Mounjaro 7.5 mg/0.5 mL pen injector 7.5 mg SUBCUT Q7D 30 Days Qty: 15 0RF (DME) OneTouch Ultra Test Strip See Rx Instructions .Route Qty: 200 2RF Rx Instructions: Check up to 2 times daily ibuprofen 800 mg tablet 800 mg PO TID PRN (Reason: pain) Qty: 90 5RF estradiol 0.5 mg tablet 0.5 mg PO DAILY Qty: 90 3RF Rx Instructions: off 5 days; repeat cycle omeprazole 20 mg Capsule,Delayed Release(Dr/Ec) 20 mg PO BID vitamin B68-glykh acid 0.5-1 mg Tablet 1 tab PO DAILY fawfjrw-zbpo-orojp-oreg-capryl 100 mg-150 mg- 50 mg-150 mg Capsule 1 cap PO DAILY citalopram 40 mg tablet 40 mg PO DAILY atorvastatin 10 mg tablet 10 mg PO DAILY oxybutynin chloride 5 mg tablet 5 mg PO DAILY Jardiance 25 mg tablet 25 mg PO DAILY ondansetron HCl 4 mg tablet 4 mg PO Q8H PRN (Reason: nausea and vomiting) Qty: 14 0RF Discharge Orders: Discharge ED (Routine); Ordered 06/09/23 Ordered By: Seble Lentz Referrals: Prabhu Alfaro MD [Primary Care Provider] - Discharge Diet: Advance as tolerated Discharge Activity: Resume usual activity Patient Instructions: Abdominal Pain (ED), Opioid Safety, Pain Management Coding Level of Care Code ED Supervisor Of Operations for Eliseo Mancini
--- NOTE | 2023-06-09 17:50 | USR_ITS ---
PROCEDURE INFORMATION: Exam: US Abdomen, Limited; Right Upper Quadrant Exam date and time: 06/09/2023 6:50 PM Age: 53 years old Clinical indication: Abdominal pain; Generalized; Prior surgery; Surgery date: 6+ months; Surgery type: Lizzy; Additional info: Abd pain TECHNIQUE: Imaging protocol: Real time ultrasound of the abdomen with image documentation. Limited exam focused on the right upper quadrant. COMPARISON: CT abdomen pelvis w con* [id number] 04/22/2023 3:55 PM FINDINGS: Liver: Unremarkable. Gallbladder: Surgically absent. Biliary ducts: Common bile duct dilatation to approximately 1 cm, likely postsurgical. No stones. Pancreas: Suboptimally visualized. Right kidney: No mass. No definite stones. No hydronephrosis. US/US gall bladder [id number] IMPRESSION: Status post cholecystectomy. Mild central biliary ductal dilatation, likely postsurgical.
[2023-06-09] MEDS: sodium chloride 0.9% 1,000 ML 999 ML IV (17:54)
[2023-06-09 18:00] VITALS: BP 110/68; PULSE 77; O2SAT 98
[2023-06-09 18:05] LABS: Basophils % 0.2 %; Eosinophils # 0.1 10^3/uL (0.0-0.8); Eosinophils % 0.8 %; Hematocrit 47.5 % (37.0-47.0); Hemoglobin 15.3 g/dL (11.5-15.3); Lymphocytes # 3.1 10^3/uL (0.8-4.8); Lymphocytes % 29.5 %; Mean Corpuscular HGB Conc 32.2 g/dL (30.0-36.0); Mean Corpuscular Hemoglobin 28.4 pg (28.0-34.0); Mean Corpuscular Volume 88.1 fl (81-99); Mean Platelet Volume 12.3 fL (7.4-10.4); Monocytes # 0.5 10^3/uL (0.2-0.9); Monocytes % 4.4 %; Neutrophils # 6.84 10^3/uL (1.8-7.7); Neutrophils % 64.7 %; Nucleated Red Blood Cells % 0 %; Platelet Count 255 10^3/cmm (130-400); Red Blood Count 5.39 10^6/uL (4.1-5.3); Red Cell Distribution Width 13.4 % (12.1-15.1); White Blood Count 10.6 10^3/uL (4.0-10.0)
[2023-06-09 18:30] LABS: Alanine Aminotransferase 19 U/L (0-33); Albumin Level 4.2 g/dL (3.5-5.2); Alkaline Phosphatase 100 U/L (35-105); Anion Gap 16.9 (5-19); Aspartate Amino Transferase 18 U/L (0-32); Blood Urea Nitrogen 17 mg/dL (6-20); Calcium 9.5 mg/dL (8.5-10.5); Carbon Dioxide 25 mmol/L (22-29); Chloride 100 mmol/L (98-107); Globulin 3.3 g/dL (1.3-4.6); Glomerular Filtration Rate 104.2 mL/min (90-130); Glucose 159 mg/dL (65-115); Lipase 31 U/L (13-60); Osmolality Calculated 291 mOsm/kg (285-295); Potassium 3.9 mmol/L (3.5-5.1); Sodium 138 mmol/L (136-145); Total Bilirubin 0.6 mg/dL (0.15-1.2); Total Protein 7.5 g/dL (6.6-8.7)
[2023-06-09] MEDS: aluminum-mag hydrox-simethicon 30 ML, sucralfate oral liq 1 GM PO (18:33)
--- NOTE | 2023-06-09 18:59 | PC.NURSE ---
Report received from BALJINDER Batres.
[2023-06-09 19:00] VITALS: BP 105/70; PULSE 107; O2SAT 96
--- NOTE | 2023-06-09 19:42 | PC.NURSE ---
Verbal order given per Dr Lentz to straight cath pt for clean urine specimen, as pt is having uncontrollable diarrhea.
[2023-06-09 19:44] LABS: Add Urine Microscopic? NO; Charge for UA Resulting for Rev
[2023-06-09 19:48] LABS: Bilirubin Urine 1+ (Negative); Blood Urine Neg (Negative); Glucose Urine UA Norm (Normal); Ketones Urine Negative (Negative); Leukocyte Esterase Urine Negative (Negative); Nitrate Urine Negative (Negative); Protein Urine Neg (Negative); Urine Appearance Clear (CLEAR); Urine Color Yellow (Yellow); Urobilinogen Urine Norm (Negative); pH Urine 5 (5-7)
[2023-06-09] MEDS: ondansetron 2 mg/ML SDV 2 mL 4 MG IVP (20:15)
[2023-06-09] MEDS: metoclopramide 5 mg/mL SDV 2 mL 10 MG IVP (20:35)
[2023-06-09] MEDS: promethazine 25 mg/mL SDV 1 mL IM (21:30)
[2023-06-09 21:34] VITALS: BP 132/68; PULSE 70; RESP 18; O2SAT 96
== END 2023-06-09 21:43 | disposition home or self-care (01) ==
PROVIDERS: Family Medicine; Emergency Provider Family Medicine; PCP Family Medicine
DX: R10.11 Right upper quadrant pain (principal); R11.2 Nausea with vomiting, unspecified; Z90.49 Acquired absence of other specified parts of digestive tract
CPT/HCPCS: 76705; 80053; 81003; 83690; 85025; 87493; 87506; 96372; 96374; 96375; 99285; J2405; J2550; J2765; J7030

== ENCOUNTER → 2023-06-15 11:50 | Outpatient (BNVA) | payer OTHER, SELFPAY | PROVIDERS: PCP Family Medicine; Visit Provider Family Medicine | DX: R10.9 Unspecified abdominal pain (principal); R11.2 Nausea with vomiting, unspecified; R19.7 Diarrhea, unspecified | CPT/HCPCS: 80074; 86003; 86008; 87806 ==

== ENCOUNTER 2023-08-25 06:58 | Outpatient (CLI) | payer OTHER, SELFPAY ==
--- NOTE | 2023-08-25 07:15 | US_ITS ---
WS: [id number] US pelvis lmt w transvag HISTORY: pelvic cyst COMPARISON: None available. Patient is status post complete hysterectomy. No midline mass identified. No fluid or adnexal masses are identified on this examination. IMPRESSION: Unremarkable pelvic ultrasound. Status post complete hysterectomy.
== END 2023-08-25 06:59 | disposition home or self-care (01) ==
LOC: RAD 06:58
PROVIDERS: PCP Family Medicine; Visit Provider Family Medicine
DX: N94.89 Other specified conditions associated with female genital organs and menstrual cycle (principal); R10.2 Pelvic and perineal pain; Z90.710 Acquired absence of both cervix and uterus
CPT/HCPCS: 76830; 76857

== ENCOUNTER → 2024-06-22 09:30 | Outpatient (BNVA) | payer OTHER, SELFPAY | PROVIDERS: PCP Family Medicine; Visit Provider Internal Medicine | DX: E11.65 Type 2 diabetes mellitus with hyperglycemia (principal); E78.2 Mixed hyperlipidemia | CPT/HCPCS: 36415; 80053; 80061; 82044; 83036 ==

== ENCOUNTER 2024-10-16 11:09 | Outpatient (CLI) | payer OTHER, SELFPAY ==
[2024-10-16 11:56] LABS: Alanine Aminotransferase 43 U/L (0-33); Albumin Level 4.4 g/dL (3.5-5.2); Alkaline Phosphatase 101 U/L (35-105); Aspartate Amino Transferase 33 U/L (0-32); Blood Urea Nitrogen 16 mg/dL (6-20); Calcium 9.4 mg/dL (8.5-10.5); Carbon Dioxide 27 mmol/L (22-29); Chloride 98 mmol/L (98-107); Chol HDL Ratio 3.04 mg/dL (0.0-4.40); Cholesterol 161 mg/dL (0-200); Globulin 3.3 g/dL (1.3-4.6); Glomerular Filtration Rate 103.8 mL/min (90-130); Glucose 276 mg/dL (65-115); HDL Cholesterol 53 mg/dL (60-100); LDL Cholesterol Calculated 78 mg/dL (50-129); LDL HDL Ratio 1.47 RATIO (0.00-3.22); Osmolality Calculated 293 mOsm/kg (285-295); Sodium 136 mmol/L (136-145); Total Bilirubin 0.6 mg/dL (0.15-1.2); Total Protein 7.7 g/dL (6.6-8.7); Triglycerides 151 mg/dL (0-150)
[2024-10-16 12:00] LABS: Estmated Average Glucose 220; Hemoglobin A1C 9.3 % (4.0-6.0)
[2024-10-16 12:00] LABS: Creatinine Urine, Random 58 mg/dL (28-217); Microalbum Creatinine Ratio Ur 17 mg/dL (0-20); Microalbumin Random Urine 1 ug/dL (0-20)
== END 2024-10-16 11:10 | disposition home or self-care (01) ==
LOC: LAB 11:12
PROVIDERS: PCP Family Medicine; Visit Provider Internal Medicine
DX: E11.65 Type 2 diabetes mellitus with hyperglycemia (principal); E78.2 Mixed hyperlipidemia
CPT/HCPCS: 36415; 80053; 80061; 82044; 83036

== ENCOUNTER 2025-05-25 11:12 | Outpatient (CLI) | payer OTHER, SELFPAY ==
[2025-05-25 12:38] LABS: Creatinine Urine, Random 36 mg/dL (28-217); Microalbum Creatinine Ratio Ur 28 mg/dL (0-20)
[2025-05-25 12:41] LABS: Estmated Average Glucose 223; Hemoglobin A1C 9.4 % (4.0-6.0)
[2025-05-25 12:46] LABS: Alanine Aminotransferase 34 U/L (0-33); Albumin Level 4.4 g/dL (3.5-5.2); Alkaline Phosphatase 100 U/L (35-105); Anion Gap 16.8 (5-19); Aspartate Amino Transferase 26 U/L (0-32); Blood Urea Nitrogen 16 mg/dL (6-20); Calcium 9.7 mg/dL (8.5-10.5); Carbon Dioxide 27 mmol/L (22-29); Chloride 97 mmol/L (98-107); Cholesterol 186 mg/dL (0-200); Globulin 3.2 g/dL (1.3-4.6); Glucose 260 mg/dL (65-115); HDL Cholesterol 57 mg/dL (60-100); Osmolality Calculated 294 mOsm/kg (285-295); Potassium 3.8 mmol/L (3.5-5.1); Sodium 137 mmol/L (136-145); Total Protein 7.6 g/dL (6.6-8.7); Triglycerides 278 mg/dL (0-150)
== END 2025-05-25 11:13 | disposition home or self-care (01) ==
PROVIDERS: PCP Family Medicine; Visit Provider Internal Medicine
DX: E78.2 Mixed hyperlipidemia (principal); E11.65 Type 2 diabetes mellitus with hyperglycemia
CPT/HCPCS: 36415; 80053; 80061; 82044; 83036

== ENCOUNTER 2025-09-09 11:35 | Emergency (ER) | payer OTHER, SELFPAY ==
[2025-09-09 11:49] VITALS: BP 165/87; PULSE 61; RESP 17; TEMP 36.6; O2SAT 99
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
--- NOTE | 2025-09-09 11:53 | W.ED.HEATRA ---
HPI - Head Injury General: Chief complaint: Head Injury Stated complaint: abdi fell and hit her in the head Time Seen by Provider: 09/09/25 11:47 Source: patient Mode of arrival: ambulatory Limitations: no limitations History of Present Illness: 55-year-old female states that she had a pole on a stand that they used to clean deer that fell and hit her on the head just prior to arrival. Does have a 3 cm laceration to her forehead she denies any loss conscious does have a headache she rates a 6 out of 10 denies any other injuries denies any vision changes Related Data Home Medications ?Medication ?Instructions ?Recorded ?Confirmed cholecalciferol (vitamin D3) 10 10 mcg PO DAILY 12/13/20 06/04/25 mcg (400 unit) capsule omeprazole 20 mg capsule,delayed 20 mg PO BID 04/22/23 06/04/25 release turmeric 100 mg-lauro 150 1 cap PO DAILY 04/22/23 06/04/25 mg-olive 50 mg-oreg 150 mg-capryl capsule vitamin B12 0.5 mg-folic acid 1 mg 1 tab PO DAILY 04/22/23 06/04/25 tablet Previous Rx's ?Medication ?Instructions ?Recorded sole supports #1 ea 02/25/22 lisinopril 5 mg tablet 5 mg PO DAILY #90 tabs 06/23/22 metformin 1,000 mg tablet,extended 1,000 mg PO BID #180 tabs 10/14/22 release 24hr (osmotic) OneTouch Ultra Test (blood sugar #200 ea 03/08/23 diagnostic) ondansetron HCl 4 mg tablet 4 mg PO Q8H PRN nausea and 04/22/23 vomiting #14 tabs ibuprofen 800 mg tablet See Rx Instructions .Route 02/02/24 .COMPLEX #90 tabs citalopram 40 mg tablet See Rx Instructions .Route 10/19/24 .COMPLEX #30 tabs atorvastatin 10 mg tablet See Rx Instructions .Route 12/01/24 .COMPLEX #30 tabs oxybutynin chloride 5 mg tablet See Rx Instructions .Route 12/01/24 .COMPLEX #30 tabs lancets 30 gauge (OneTouch Delica #100 ea 02/06/25 Plus Lancet) estradiol 0.5 mg tablet See Rx Instructions .Route 05/15/25 .COMPLEX #90 tabs lisinopril 20 See Rx Instructions .Route 05/15/25 mg-hydrochlorothiazide 12.5 mg .COMPLEX #90 tabs tablet dulaglutide 0.75 mg/0.5 mL 0.75 mg (0.5 mL) SUBCUT Q7D #2 mL 06/04/25 subcutaneous pen injector (Trulicity) dulaglutide 1.5 mg/0.5 mL 1.5 mg (0.5 mL) SUBCUT Q7D #2 mL 06/04/25 subcutaneous pen injector (Trulicity) dulaglutide 3 mg/0.5 mL 3 mg (0.5 mL) SUBCUT Q7D #2 mL 06/04/25 subcutaneous pen injector (Trulicity) dulaglutide 4.5 mg/0.5 mL 4.5 mg (0.5 mL) SUBCUT Q7D #6 mL 06/04/25 subcutaneous pen injector (Trulicity) empagliflozin 25 mg tablet 25 mg PO DAILY #90 tabs 08/20/25 (Jardiance) Allergies Allergy/AdvReac Type Severity Reaction Status Date / Time Alpha-Gal Allergy Mild Unknown Verified 06/04/25 08:18 (Jluuojksz-Ivaop-3,3-Gala latex Allergy Mild ALGY-Rash Verified 06/04/25 08:18 Review of Systems Neuro: Reports: headache(s) PFSH ED PFSH: Medical History Fatty liver Allergy to alpha-gal diagnosed 05/2023 History of diabetes mellitus, type II Surgical History History of hysterectomy History of knee replacement Family History Grandmother , LUNG No problems noted. 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 Current gender identity: Female Special [place] needs: No Physical Exam Const: COMMON NORMALS: no acute distress, patient oriented x3 and healthy appearing HENMT: COMMON NORMALS: normocephalic HEAD & SCALP: normocephalic OTHER: 3 cm laceration of forehead Eye: COMMON NORMALS: Equal, round and reactive pupils present and EOMs intact bilaterally PUPIL: Yes Equal, round and reactive pupils present Neck/C-Spine: COMMON NORMALS: full ROM and supple Chest: COMMONS NORMALS: normal inspection of the chest Resp: COMMON NORMALS: normal respiratory effort Cardio: COMMON NORMALS: regular rate RATE: regular rate Extremity: COMMON NORMALS: normal to inspection and full ROM Neuro: COMMON NORMALS: patient oriented x3, moves all extremities and no focal motor deficits Psych: COMMON NORMALS: mental status grossly normal, Normal thought process present and cooperative THOUGHT PROCESS: Normal thought process present Skin: COMMON NORMALS: no rashes or lesions noted and no wounds GENERAL SKIN EXAM: no rashes or lesions noted Procedures Laceration Laceration 1: Site: face (forehead) Size (cm): 3 Description: linear Depth: simple, single layer Pre-repair: wound explored and irrigated extensively Skin layer closed with: other (dermabond) Course Vital Signs: Vital signs: Vital Signs Temperature 97.9 F 09/09/25 11:49 Pulse Rate 57 L 09/09/25 12:21 Respiratory Rate 18 09/09/25 12:21 Blood Pressure 156/89 09/09/25 12:21 Pulse Oximetry 96 09/09/25 12:21 Oxygen Delivery Me thod Room Air 09/09/25 12:21 MDM - Head Injury Medcial Decision Making Patient presents here with head laceration after being struck with a metal pole. She been well-appearing here does have a headache no loss of consciousness. Differential includes skull fracture, intracranial hemorrhage. These were ruled out with head CT here showed no acute abnormality and was interpreted by me as well. Was able to close her wound with tissue adhesive. She is stable for discharge did go over findings with her she is follow-up with PCP and return if worsening. She understands agrees to plan Medical Records I reviewed the patient's medical records. Lab Data Radiology Impressions Head CT 09/09/25 11:51 IMPRESSION: 1. Frontal scalp contusion/laceration noted. No underlying fracture. 2. No intracranial hemorrhage or mass-effect with grossly preserved singh-white matter differentiation. 3. Mild mucoperiosteal thickening in the ethmoid air cells and left sphenoid sinus without intra sinus fluid. Correlate for any clinical symptoms of sinusitis. All radiology interpretation(s) finalized by discharge Discharge Plan Discharge Patient Disposition: Home Clinical Impression: Laceration of head Qualifiers: Encounter type: initial encounter Condition: Stable Prescriptions: No Action cholecalciferol (vitamin D3) 10 mcg (400 unit) capsule 10 mcg PO DAILY (DME) sole supports See Rx Instructions .Route .MEDSUPPLY Qty: 1 0RF Rx Instructions: As directed Trulicity 0.75 mg/0.5 mL pen injector 0.75 mg SUBCUT Q7D Qty: 2 0RF Trulicity 1.5 mg/0.5 mL pen injector 1.5 mg SUBCUT Q7D Qty: 2 0RF Trulicity 4.5 mg/0.5 mL pen injector 4.5 mg SUBCUT Q7D Qty: 6 0RF Trulicity 3 mg/0.5 mL pen injector 3 mg SUBCUT Q7D Qty: 2 0RF metformin 1,000 mg tablet extended release 24hr 1,000 mg PO BID Qty: 180 3RF lisinopril 5 mg tablet 5 mg PO DAILY Qty: 90 3RF (DME) OneTouch Ultra Test Strip See Rx Instructions .Route Qty: 200 2RF Rx Instructions: Check up to 2 times daily ibuprofen 800 mg tablet See Rx Instructions .ROUTE .COMPLEX Qty: 90 5RF Dose Instruction: TAKE ONE TABLET BY MOUTH THREE TIMES DAILY NEEDED FOR PAIN Rx Instructions: TAKE ONE TABLET BY MOUTH THREE TIMES DAILY NEEDED FOR PAIN citalopram 40 mg tablet See Rx Instructions .ROUTE .COMPLEX Qty: 30 11RF Dose Instruction: TAKE 1 TABLET BY MOUTH EVERY DAY Rx Instructions: TAKE 1 TABLET BY MOUTH EVERY DAY atorvastatin 10 mg tablet See Rx Instructions .ROUTE .COMPLEX Qty: 30 11RF Dose Instruction: TAKE 1 TABLET BY MOUTH EVERY DAY Rx Instructions: TAKE 1 TABLET BY MOUTH EVERY DAY oxybutynin chloride 5 mg tablet See Rx Instructions .ROUTE .COMPLEX Qty: 30 11RF Dose Instruction: TAKE 1 TABLET BY MOUTH EVERY EVENING FOR BLADDER SPASM Rx Instructions: TAKE 1 TABLET BY MOUTH EVERY EVENING FOR BLADDER SPASM (DME) lancets [OneTouch Delica Plus Lancet] 30 gauge misc See Rx Instructions .Route Qty: 100 0RF Rx Instructions: As directed estradiol 0.5 mg tablet See Rx Instructions .ROUTE .COMPLEX Qty: 90 3RF Dose Instruction: take ONE tablet BY MOUTH daily. off FOR FIVE DAYS. THEN REPEAT CYCLE Rx Instructions: take ONE tablet BY MOUTH daily. off FOR FIVE DAYS. THEN REPEAT CYCLE lisinopril-hydrochlorothiazide 20-12.5 mg tablet See Rx Instructions .ROUTE .COMPLEX Qty: 90 3RF Dose Instruction: TAKE 1 TABLET BY MOUTH EVERY DAY Rx Instructions: TAKE 1 TABLET BY MOUTH EVERY DAY Jardiance 25 mg tablet 25 mg PO DAILY Qty: 90 1RF omeprazole 20 mg Capsule,Delayed Release(Dr/Ec) 20 mg PO BID vitamin N10-zcrbb acid 0.5-1 mg Tablet 1 tab PO DAILY epvddwzv-wzuo-uiqdo-oreg-capry 100 mg-150 mg- 50 mg-150 mg Capsule 1 cap PO DAILY ondansetron HCl 4 mg tablet 4 mg PO Q8H PRN (Reason: nausea and vomiting) Qty: 14 0RF Discharge Orders: Discharge ED (Routine); Ordered 09/09/25 Ordered By: Markus Pelaez Referrals: Prabhu Alfaro MD [Primary Care Provider, Family Practice] - 4-7 days Discharge Diet: Advance as tolerated Discharge Activity: Resume usual activity Patient Instructions: Skin Adhesive Care (ED), Head Laceration (ED) Print Language: Libyan Coding Level of Care Code ED Business Center Attendant for Eliseo Mancini
[2025-09-09 12:21] VITALS: BP 156/89; PULSE 57; RESP 18; O2SAT 96
[2025-09-09 12:58] VITALS: BP 143/84; PULSE 63; RESP 14; O2SAT 100
== END 2025-09-09 13:00 | disposition home or self-care (01) ==
PROVIDERS: Emergency Provider Emergency Medicine; PCP Family Medicine
DX: S01.81XA Laceration without foreign body of other part of head, initial encounter (principal); Z79.84 Long term (current) use of oral hypoglycemic drugs; Z79.85 Long-term (current) use of injectable non-insulin antidiabetic drugs; E11.9 Type 2 diabetes mellitus without complications; W20.8XXA Other cause of strike by thrown, projected or falling object, initial encounter
CPT/HCPCS: 12013; 70450; 99284